=== PATIENT | male | born 1935 | race Caucasian/White ===

== ENCOUNTER 2018-06-15 05:00 | Inpatient (IN) ==
--- NOTE | 2018-06-09 14:54 | EKG Report ---
Test Performed on : 06/09/2018 2:40:32 PM Test Reason : pat Blood Pressure : / mmHG Vent. Rate : 068 BPM Atrial Rate : 068 BPM P-R Int : 182 ms QRS Dur : 100 ms QT Int : 392 ms P-R-T Axes : 055 099 001 degrees QTc Int : 416 ms Normal sinus rhythm. Septal infarct , age undetermined Lateral infarct , age undetermined ST & T wave abnormality, consider inferior ischemia Abnormal ECG When compared with ECG of 12-OCT-2017 14:15, QRS axis shifted right Suspect limb lead reversals, this would account for l\axis shift and lateral NM pattern T wave inversion now evident in Inferior leads Please repeat EKG(no charge) Confirmed by Vipul SNOW, Amado Pablo ([id number]) on 06/12/2018 9:53:29 AM
[2018-06-09 15:09] LABS: URINE SOURCE VOIDED
[2018-06-09 15:12] LABS: BASO# 0.03 X1000 (0.0-0.2); BASO% 0.4 % (0.0-0.8); BILIRUBIN URINE NEGATIVE (NEGATIVE); BLOOD URINE NEGATIVE (NEGATIVE); COLOR YELLOW; EOS# 0.17 X1000 (0.0-0.7); EOS% 2.4 % (0.0-10.0); GLUCOSE URINE NEGATIVE (NEGATIVE); HEMATOCRIT 41.4 % (42.0-52.0); HEMOGLOBIN 13.7 g/dL (14.0-18.0); KETONE URINE NEGATIVE (NEGATIVE); LEUKOCYTES URINE NEGATIVE (NEGATIVE); LYMPH# 2.12 X1000 (1.2-3.4); MCH 32.8 PG (27-31); MCHC 33.1 g/dL (33-37); MONO# 1.16 X1000 (0.11-0.59); MONO% 16.4 % (1.7-9.3); MPV 9.4 FL (7.4-10.4); NEUT# 3.59 X1000 (1.4-6.5); NEUT% 50.8 % (42.2-75.2); NITRITE URINE NEGATIVE (NEGATIVE); PH URINE 5.5; PLT 176 X1000 (130-400); PROTEIN URINE NEGATIVE (NEGATIVE); RBC 4.18 XMIL (4.7-6.1); RDW 13.3 % (11.5-14.5); SP GRAVITY URINE 1.014; TURBIDITY URINE CLEAR (CLEAR); UROBILINOGEN URINE NORMAL (NORMAL); WBC 7.07 X1000 (4.8-10.8)
--- NOTE | 2018-06-09 15:12 | Diag Imaging Result Doc PS360 ---
EXAM: CHEST-2 VIEWS 06/09/2018 HISTORY: PAT TECHNIQUE: PA and lateral chest COMMENT: There is some interstitial opacity in the right costophrenic sulcus which is slightly worse than on the previous study of 10/12/2017. There is a left-sided Port-A-Cath which was not previously present. Otherwise there has been no significant change in the appearance the chest. IMPRESSION: Questionable interstitial pulmonary edema. Electronically signed by Raad Lau 06/09/2018 3:10 PM
[2018-06-09 15:14] LABS: UR EPITHELIAL CELLS <10 /HPF (<10); URINE BACTERIA NEGATIVE /HPF; URINE RBC <10 /HPF (<10); URINE WBC <10 /HPF (<10)
[2018-06-09 15:38] LABS: AGAP 9; ALB/GLOB RATIO 1.2; ALKALINE PHOSPHATASE 89 U/L (32-122); BUN 19 mg/dL (8-22); CALCIUM 9.2 mg/dL (8.8-10.2); CHLORIDE 104 mmol/L (98-107); COSMO 281; CREATININE 0.9 mg/dL (0.7-1.2); ESTIMATED GFR > 60; GLUCOSE 93 mg/dL (70-104); GOT 26 U/L (10-34); GPT 21 U/L (10-44); SODIUM 140 mmol/L (136-145); TCO2 27 mmol/L (25-35); TOTAL PROTEIN 7.3 g/dL (6.3-8.3)
[2018-06-15] MEDS ORDERED: PEPCID ONE (07:24)
[2018-06-15] MEDS ORDERED: REGLAN ONE (07:24)
[2018-06-15] MEDS ORDERED: LR 1,000 ML ONE ×2 (07:25→08:43)
[2018-06-15] MEDS ORDERED: ENTEREG ONE (07:41)
[2018-06-15] MEDS ORDERED: MEFOXIN 1 GM/D5W 1 GM/50 ML IVPB ONE (07:41)
[2018-06-15] MEDS ORDERED: VERSED ONE (07:42)
[2018-06-15] MEDS ORDERED: QUELICIN (DOSE) ONE (07:44)
[2018-06-15] MEDS ORDERED: FENTANYL ONE (07:44)
[2018-06-15] MEDS ORDERED: XYLOCAINE-MPF 2% ONE (07:44)
[2018-06-15] MEDS ORDERED: AMIDATE ONE (07:44)
[2018-06-15] MEDS ORDERED: FLAGYL 1000 MG/NS 1,000 MG/200 ML IVPB IV ONE (08:00)
[2018-06-15] MEDS ORDERED: ZOFRAN ONE (08:10)
[2018-06-15] MEDS ORDERED: OFIRMEV 1000 MG/ISOTONIC SOLN 1,000 MG/100 ML BOTTLE ONE (08:10)
[2018-06-15] MEDS ORDERED: NORCURON ONE (08:10)
[2018-06-15] MEDS ORDERED: DECADRON ONE (08:10)
[2018-06-15] MEDS ORDERED: STERILE WATER INJ. ONE (08:10)
[2018-06-15] MEDS ORDERED: SENSORCAINE 0.5%-EPI 1:200,000 ONE (08:43)
[2018-06-15] MEDS ORDERED: FLAGYL 500 MG/NS 500 MG/100 ML IVPB MISC ONE (09:00)
[2018-06-15] MEDS: FLAGYL 500 MG/NS 500 MG/100 ML IVPB IV SCH (09:12)
[2018-06-15 09:59] LABS: URINE SOURCE CATH
[2018-06-15] MEDS ORDERED: DILAUDID ONE (09:59)
[2018-06-15 10:03] LABS: BILIRUBIN URINE NEGATIVE (NEGATIVE); BLOOD URINE NEGATIVE (NEGATIVE); COLOR YELLOW; GLUCOSE URINE NEGATIVE (NEGATIVE); KETONE URINE NEGATIVE (NEGATIVE); LEUKOCYTES URINE NEGATIVE (NEGATIVE); NITRITE URINE NEGATIVE (NEGATIVE); PROTEIN URINE NEGATIVE (NEGATIVE); SP GRAVITY URINE 1.002; TURBIDITY URINE CLEAR (CLEAR); UR EPITHELIAL CELLS <10 /HPF (<10); URINE BACTERIA NEGATIVE /HPF; URINE RBC <10 /HPF (<10); URINE WBC <10 /HPF (<10); UROBILINOGEN URINE NORMAL (NORMAL)
[2018-06-15] MEDS: DILAUDID ONE ×4 (12:23→12:45)
[2018-06-15] MEDS ORDERED: D5 1/2 NS 1,000 ML ONE (12:24)
[2018-06-15] MEDS ORDERED: DILAUDID-HP 30 MG in NS 27 ML IV PRN (12:33)
[2018-06-15] MEDS ORDERED: NARCAN IV PRN (12:33)
[2018-06-15] MEDS: D5 1/2 NS 1,000 ML IV SCH (14:38)
[2018-06-15] MEDS: OFIRMEV 1000 MG/ISOTONIC SOLN 1,000 MG/100 ML BOTTLE IV SCH ×2 (17:13→21:56)
[2018-06-15] MEDS: MEFOXIN 1 GM/D5W 1 GM/50 ML IVPB IV SCH (18:20)
[2018-06-15] MEDS: FLAGYL 1000 MG/NS 1,000 MG/200 ML IVPB IV SCH (18:54)
[2018-06-15] MEDS: PERIDEX MT SCH (21:56)
--- NOTE | 2018-06-15 22:38 | OPERATIVE NOTE ---
PROCEDURE DATE: 06/15/2018 PREOP: History of T3N3M0 colon cancer in September 2017 in the descending colon. Previous procedure was excision of tumor with end colostomy and Erna pouch. The patient subsequently had a port placement for chemotherapy. Most recent workup revealed no evidence of metastatic disease. Patient is desirous of colostomy closure as he has a pericolostomy hernia and pain. DESCRIPTION OF PROCEDURE: He was brought to the operating room. After satisfactory induction of IV and endotracheal anesthesia, athrombic TEDs and a Redd catheter were placed. His abdomen was broadly prepped and draped in the appropriate manner. Initially a Redd catheter was placed in the end-colostomy and the colostomy itself was cored out with dissection taken down to the fascia. It was subsequently freed up from the fascia and a pursestring device was used to divide the distal colon and a 28 mm EEA anvil was sewed in. This was subsequently dropped back into the peritoneal cavity. The fascial defect was closed with interrupted #1 Maxon and packed with Xeroform gauze and wet laparotomy sponge. Attention was then taken to the upper midline. A Della approach was used to place Della trocar. The abdomen was insufflated to 3.5 L of carbon dioxide. On introduction of the camera there was seen to be extensive omental and small bowel adhesions to the anterior abdominal wall as well as into the pelvis. It was not felt that this was amenable to a laparoscopic attempt at colostomy closure. For this reason, the laparoscopic portion was abandoned. The old midline incision was reopened. The small bowel and omental adhesions were freed up. 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 It did not appear to have an end and we did not feel it was safe to pursue this any further and resect more rectum and tumor and reanastomose him at this point. For this reason, several large hemoclips were placed in the area of the tumor for localization for the radiation oncologist. A new colostomy was developed in the right lower quadrant after freeing up the proximal sigmoid colon. There was no significant tension on this. Subsequent to this the wound was irrigated. After accounting for all laparotomy sponges, the closure was initiated. The peritoneum was closed with a single running layer of #1 Vicryl. The fascia was closed with interrupted #1 Maxon. Subcutaneous was debrided and the skin was closed with stainless steel clips in the old colostomy site, the laparoscopy site as well as the midline incision. The colostomy itself was subsequently matured with interrupted 3-0 Vicryl. Sterile colostomy bag was applied as well as sterile dressing. The patient was subsequently awakened and extubated in the operating room. Estimated blood loss was around 200 mL. He had approximately 250 mL of urine output. PLAN: Is for reconsultation with Dr. Castro and Dr. Bell for consideration of another round of chemo as well as radiation therapy to the pelvis. cc: Seth Emery MD
[2018-06-16] MEDS: FLAGYL 1000 MG/NS 1,000 MG/200 ML IVPB IV SCH ×2 (00:30→09:32)
[2018-06-16] MEDS: LR 1,000 ML IV SCH ×2 (01:07→13:17)
[2018-06-16] MEDS: FLAGYL 500 MG/NS 500 MG/100 ML IVPB IV SCH (01:07)
[2018-06-16] MEDS: D5 1/2 NS 1,000 ML IV SCH ×3 (01:30→18:33)
[2018-06-16] MEDS: MEFOXIN 1 GM/D5W 1 GM/50 ML IVPB IV SCH ×2 (02:00→10:45)
[2018-06-16] MEDS: OFIRMEV 1000 MG/ISOTONIC SOLN 1,000 MG/100 ML BOTTLE IV SCH ×2 (04:34→09:18)
[2018-06-16 06:24] LABS: BASO# 0.02 X1000 (0.0-0.2); BASO% 0.2 % (0.0-0.8); EOS# 0.04 X1000 (0.0-0.7); EOS% 0.4 % (0.0-10.0); HEMATOCRIT 39.9 % (42.0-52.0); HEMOGLOBIN 13.4 g/dL (14.0-18.0); IMM GRAN# 0.03 X1000 (0.0-0.04); IMM GRAN% 0.3 % (0.0-0.5); LYMPH# 1.74 X1000 (1.2-3.4); LYMPH% 15.5 % (20.5-51.1); MCH 33.1 PG (27-31); MCHC 33.6 g/dL (33-37); MCV 98.5 FL (81-99); MONO# 1.24 X1000 (0.11-0.59); MONO% 11.1 % (1.7-9.3); MPV 9.6 FL (7.4-10.4); NEUT# 8.14 X1000 (1.4-6.5); NEUT% 72.5 % (42.2-75.2); PLT 175 X1000 (130-400); RBC 4.05 XMIL (4.7-6.1); WBC 11.21 X1000 (4.8-10.8)
[2018-06-16 07:02] LABS: AGAP 12; BUN 7 mg/dL (8-22); CALCIUM 8.4 mg/dL (8.8-10.2); CHLORIDE 101 mmol/L (98-107); COSMO 272; CREATININE 0.7 mg/dL (0.7-1.2); ESTIMATED GFR > 60; GLUCOSE 134 mg/dL (70-104); POTASSIUM 3.9 mmol/L (3.5-5.1); SODIUM 136 mmol/L (136-145); TCO2 23 mmol/L (25-35)
[2018-06-16] MEDS: BIOTIN PO SCH (09:15)
[2018-06-16] MEDS: ZINC SULFATE PO SCH (09:16)
[2018-06-16] MEDS: VICON-C PO SCH (09:16)
[2018-06-16] MEDS: PERIDEX MT SCH ×2 (09:16→21:40)
[2018-06-16] MEDS: ENTEREG PO SCH ×2 (09:16→21:40)
[2018-06-16] MEDS: VITAMIN C PO SCH (09:16)
[2018-06-16] MEDS: CULTURELLE PO SCH (09:16)
[2018-06-16] MEDS: FERROUS SULFATE PO SCH (09:16)
[2018-06-16] MEDS: ZYRTEC PO SCH (09:16)
--- NOTE | 2018-06-16 11:13 | HEMO/ONC CONSULTATION ---
DATE: 06/16/2018 CHIEF COMPLAINT: Further evaluation and management of patient's sigmoid colon adenocarcinoma. HISTORY OF PRESENT ILLNESS: Mr. Bansal is a pleasant, 82-year-old male, that went into the hospital on 06/13/2018 to have reversal of his colostomy. While patient was in surgery, the patient was found to have multiple small bowel adhesions in the pelvis fixed into the middle adhesions as well. A portion of this was sent to pathology and that revealed a mucinous adenocarcinoma as well, and unfortunately, reanastomosis was unable to be performed at that time. He was admitted for further evaluation. Mr. Bansal is well known to us in our clinic where he had been followed up for his T4a N2 16 out of 24 lymph nodes sigmoid colon adenocarcinoma. At that time stated that those did not show any evidence of metastatic disease. The patient underwent sigmoid resection on and pathology revealed a moderate to poorly differentiated carcinoma with macroscopic tumor perforation. The patient was unable to have radiation at that time. The patient was started on adjuvant chemotherapy on 11/30/2017, the patient finished his adjuvant chemotherapy of FOLFOX on 05/04/2018 when he received his last dose. The patient had restaging scans with a CT performed on 05/10/2018 that showed no evidence of metastatic disease at that time. PAST MEDICAL HISTORY: Rectosigmoid adenocarcinoma. PAST SURGICAL HISTORY: Repair colon resection. ALLERGIES: No known drug allergies. HOME MEDICATIONS: Vitamin C, biotin, Zyrtec, iron, probiotics, vitamin B complex, Coumadin, and zinc. SOCIAL HISTORY: Denies any tobacco or illicit drug use. FAMILY HISTORY: Congestive heart failure. REVIEW OF SYSTEMS: Negative unless mentioned in the HPI. PHYSICAL EXAM: Vital Signs: Temperature 97.8, heart rate 60, respiratory rate 18, blood pressure 120/97, saturation 100% on room air. General: Patient is awake, laying in bed , no acute distress noted. HEENT: Anicteric. PERRLA. Mucous membranes moist. Neck: Supple. Trachea midline. No JVD noted. Lymph node survey: Palpable lymphadenopathy. Cardiovascular: Normal S1, S2. Regular rate and rhythm. Chest: Bilateral breath sounds clear to auscultation. Abdomen: Soft, tender. Bowel sounds hypoactive. Midline incision to abdomen noted. Dressing intact. Skin: Warm, dry. No petechiae, no clubbing, no rashes, no cyanosis. Neurologic: Alert and oriented x3. No focal deficits noted. LABORATORY DATA: White cell count 11.21, hemoglobin 13.4, hematocrit 39.9, platelets are 175. Potassium 3.9, BUN 7, creatinine 0.7. ASSESSMENT AND PLAN: 1. Rectal adenocarcinoma: Patient was found to have adhesions to small bowel and omentum in the operating room yesterday. At this time, we will discuss with Dr. Belle Bell to see if patient is candidate for radiation. Will continue to follow up and monitor and make recommendation. 2. Anemia. Today, hemoglobin is 13.4, hematocrit 39.9. Continues to be stable compared to labs in the office. We will continue to monitor closely. 3. Supportive care: The patient will start protein shakes as soon as he is cleared to eat and drink. The patient will start protein shakes 4 times a day. Plan of care discussed with Dr. Castro. Dictated by KRYSTAL Renteria for Herson Castro MD Patient seen and examined. As above. Patient underwent surgery with the intent for colostomy reversal. Unfortunately he was noted to have some drop metastases in the rectal area. Surgery was aborted. Dr. Emery has consult at Dr. Bell for radiation to this area. If needed we will add concurrent chemotherapy therapy with 5 fluorouracil. Otherwise patient is doing well. Of note, previously he was diagnosed to have extremely high risk colon cancer with perforation and numerable positive lymph nodes. He tolerated FOLFOX chemotherapy extremely well. Recent CT of the abdomen and pelvis was without distant metastases. Herson Castro M.D. cc: KRYSTAL Renteria MD [facility] C. Nabers, MD [facility]
[2018-06-16 12:07] LABS: INR 1.06; PROTIME 14.6 Seconds (11.0-16.0)
[2018-06-16] MEDS: COUMADIN PO SCH (21:40)
[2018-06-16] MEDS: ZANTAC PO SCH (21:40)
[2018-06-17 05:21] LABS: BASO# 0.01 X1000 (0.0-0.2); BASO% 0.1 % (0.0-0.8); EOS# 0.11 X1000 (0.0-0.7); EOS% 1.1 % (0.0-10.0); HEMOGLOBIN 13.1 g/dL (14.0-18.0); LYMPH% 14.1 % (20.5-51.1); MCH 33.5 PG (27-31); MCHC 33.6 g/dL (33-37); MCV 99.7 FL (81-99); MONO# 1.26 X1000 (0.11-0.59); MONO% 12.7 % (1.7-9.3); MPV 9.4 FL (7.4-10.4); NEUT# 7.12 X1000 (1.4-6.5); PLT 153 X1000 (130-400); RBC 3.91 XMIL (4.7-6.1); RDW 13.3 % (11.5-14.5)
[2018-06-17 05:41] LABS: AGAP 11; BUN 4 mg/dL (8-22); CALCIUM 8.3 mg/dL (8.8-10.2); CHLORIDE 103 mmol/L (98-107); COSMO 274; CREATININE 0.7 mg/dL (0.7-1.2); ESTIMATED GFR > 60; GLUCOSE 149 mg/dL (70-104); POTASSIUM 3.5 mmol/L (3.5-5.1); SODIUM 137 mmol/L (136-145); TCO2 23 mmol/L (25-35)
--- NOTE | 2018-06-17 07:35 | Diag Imaging Result Doc PS360 ---
EXAM: CHEST-PORTABLE 06/17/2018 HISTORY: Post Op TECHNIQUE: AP portable at 0655 COMMENT: There is platelike atelectasis in the left lower lobe. The inspiration is generally less optimal than on 06/09/2018, otherwise there has been no significant change. IMPRESSION: Minimal atelectasis versus fibrosis on the left. Electronically signed by Raad Lau 06/17/2018 7:32 AM
--- NOTE | 2018-06-17 08:53 | HEMO/ONC PROGRESS NOTE ---
DATE: 06/17/2018 SUBJECTIVE: The patient has no complaints at this time. The patient says he is doing well at this time. OBJECTIVE: Vital Signs: Temperature 96.5 degrees, heart rate 81, respiratory rate 14, blood pressure 150/79, saturation 95% on room air. General: The patient is awake, lying in bed. No acute distress noted. HEENT: Anicteric. Pupils PERRLA. Mucous membranes moist. Cardiovascular: Normal S1 and S2. Regular rate and rhythm. Chest: Bilateral breath sounds clear to auscultation. Abdomen: Soft, nontender. Bowel sounds present in all 4 quadrants. Dressing to midline abdomen intact. Neurologic: Alert and oriented x3. No focal deficits noted. LABORATORY DATA: White blood cell count 9.9, hemoglobin 13.1, hematocrit 39.0, platelets 153,000. Potassium 3.5, BUN 4, creatinine 0.7. ASSESSMENT AND PLAN: 1. Rectal adenocarcinoma: The patient was found to have an area of metastasis within the rectal area. Dr. Bell has been consulted for radiation of this area. If needed, we will give chemotherapy. We will continue to monitor and make further recommendations. 2. Anemia: Hemoglobin and hematocrit continue to be stable. Continue to monitor closely. 3. Protein shakes: Continue protein shakes q.i.d. Have patient get out of bed as much as possible. Plan of care discussed with Dr. Castro. Dictated by KRYSTAL Renteria for Herson Castro MD cc: KRYSTAL Renteria MD [facility]. Nabers, MD
[2018-06-17] MEDS: ENTEREG PO SCH ×2 (10:06→22:52)
[2018-06-17] MEDS: VITAMIN C PO SCH (10:06)
[2018-06-17] MEDS: VICON-C PO SCH (10:06)
[2018-06-17] MEDS: ZANTAC PO SCH ×2 (10:06→22:52)
[2018-06-17] MEDS: BIOTIN PO SCH (10:06)
[2018-06-17] MEDS: CULTURELLE PO SCH (10:06)
[2018-06-17] MEDS: ZINC SULFATE PO SCH (10:06)
[2018-06-17] MEDS: FERROUS SULFATE PO SCH (10:06)
[2018-06-17] MEDS: ZYRTEC PO SCH (10:07)
[2018-06-17] MEDS: PERIDEX MT SCH ×2 (10:07→22:52)
[2018-06-17] MEDS: D5 1/2 NS 1,000 ML IV SCH ×2 (10:39→11:55)
[2018-06-17] MEDS: TYLENOL PO PRN (11:51)
[2018-06-17] MEDS ORDERED: D5 1/2 NS 1,000 ML IV SCH (12:00)
[2018-06-17] MEDS: LR 1,000 ML IV SCH (12:18)
--- NOTE | 2018-06-17 13:49 | CONSULTATION ---
DATE OF CONSULTATION: 06/16/2018 REASON FOR CONSULTATION: Recurrent colon cancer. HISTORY OF PRESENT ILLNESS: Mr. Bansal is a pleasant 82-year-old gentleman well known to me. I first met him in the Summer of 2017 after he had been diagnosed with a T4 N2 adenocarcinoma of the sigmoid colon. At that time, he had surgery and adjuvant chemotherapy. We have also considered adding radiation therapy but because of the location of the original tumor above the peritoneal reflection it was not felt that we could adequately target the area at risk. We however knew that the patient was a very high risk for recurrence due to his T4 disease in 16 of 24 lymph nodes being positive for adenocarcinoma. Unfortunately, he was found to have significant recurrence this week when Dr. Emery took him to the OR to reverse his colostomy. This was done yesterday on 06/15/2018. He was found during surgery to have metastasis around the rectal stump. 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 It was not felt safe to pursue any further resection so several large hemoclips were placed in the area of the tumor for localized radiation. I am here today to discuss this further with the patient. PAST MEDICAL HISTORY: Colon cancer. PAST SURGICAL HISTORY: Colon resection. HOME MEDICATIONS: 1. Vitamin C. 2. Biotin. 3. Zyrtec. 4. Iron. 5. Probiotics. 6. Vitamin B. 7. Coumadin. 8. Zinc. ALLERGIES: No known allergies. SOCIAL HISTORY: No tobacco or alcohol. FAMILY HISTORY: None significant. PHYSICAL EXAMINATION: Vitals: Per the hospital record. HEENT: Pupils are equal, round, and reactive to light. Mucous membranes are moist. Neck: Supple. Heart: Revealed normal rate. Chest: The patient is breathing comfortably. Abdomen: Non distended. Extremities: Reveal no edema. Neurologic: The patient is alert and oriented x3. There are no focal deficits. ASSESSMENT/PLAN: In summary, Mr. Bansal has a locally recurrent colon cancer. I agree with the recommendation for radiation therapy. I do believe the concurrent chemotherapy as needed as well. We will discuss this further with Dr. Castro. The patient will be in the hospital through the week, and I will plan on seeing him in the office at the end of next week to discuss getting started with radiation. cc: MD Seth Ott MD
[2018-06-17] MEDS: COUMADIN PO SCH (22:52)
[2018-06-18 07:32] VITALS: BP 135/72
--- NOTE | 2018-06-18 08:12 | HEMO/ONC PROGRESS NOTE ---
DATE: 06/18/2018 SUBJECTIVE: Patient says he is feeling well at this time. Has had some very mild abdominal pain from surgery. Otherwise, no other complaints. OBJECTIVE: Vital Signs: Temperature 98.2 degrees, heart rate 67, respiratory rate 20, blood pressure 135/72, satting 99% on room air. General: Patient is awake, lying in bed, no acute distress noted. HEENT: Anicteric. Pupils PERRLA. Mucous membranes appear to be moist. Cardiovascular: Normal S1, S2. Regular rate and rhythm. Chest: Bilateral breath sounds. Clear to auscultation. Abdomen: Soft, mildly tender. Bowel sounds present in all 4 quadrants. Colostomy intact and draining well. Neurologic: Alert and oriented x3. No focal deficits noted. ASSESSMENT AND PLAN: 1. Rectal adenocarcinoma: The patient will require concurrent chemotherapy and radiation once he is discharged from the hospital. Dr. Bell has seen the patient and discussed that with him as well. Patient will follow up once he is discharged from the hospital with Dr. Bell and nurse as well to discuss treatment at that time. 2. Anemia. Continue to monitor closely. 3. Protein shakes. Continue protein shakes four times daily. Continue to have patient get out of bed as much as possible. Plan of care discussed with Dr. Castro. Dictated by KRYSTAL Renteria for Herson Castro MD cc: KRYSTAL Renteria MD Hugh C. Nabers, MD
[2018-06-18] MEDS: ZYRTEC PO SCH (09:23)
[2018-06-18] MEDS: FERROUS SULFATE PO SCH (09:23)
[2018-06-18] MEDS: VICON-C PO SCH (09:23)
[2018-06-18] MEDS: ZINC SULFATE PO SCH (09:23)
[2018-06-18] MEDS: ENTEREG PO SCH (09:23)
[2018-06-18] MEDS: VITAMIN C PO SCH (09:23)
[2018-06-18] MEDS: CULTURELLE PO SCH (09:23)
[2018-06-18] MEDS: PERIDEX MT SCH (09:24)
[2018-06-18] MEDS: ZANTAC PO SCH (09:24)
[2018-06-18] MEDS: TYLENOL PO PRN (09:27)
[2018-06-18] MEDS: BIOTIN PO SCH (09:27)
--- NOTE | 2018-07-03 09:46 | DISCHARGE SUMMARY ---
ADMISSION DATE: 06/15/2018 DISCHARGE DATE: 06/18/2018 DIAGNOSIS: History of T4N2M0 colon cancer, status post resection with end colostomy and Erna pouch with postoperative chemotherapy. The plan was for colostomy closure. The patient is an 83- year-old white male with known history of a T3-T4 colon cancer with 16/18 positive lymph nodes from surgery in September of 2016. He subsequently had a course of chemotherapy with Dr. Castro. Most recent evaluation had not revealed any evidence of metastatic disease. He was very desirous of colostomy closure as he is still quite active. He also had a pericolostomy hernia that was bothering him. The patient underwent an outpatient chemical and mechanical bowel prep and was admitted on the day of surgery. The colostomy was taken down. The pericolostomy hernia was closed. On examination of the rectal stump, there appeared to be multiple gravitational tumor implants. They were proven on frozen section to be mucinous adenocarcinoma, the same as his previous diagnosis. These did not appear to be metastatic. They appeared to be related to the tumor from previous excision. The area was marked out for consideration for radiation therapy. A new colostomy was placed in the right side after freeing up the proximal colon somewhat. Hospitalization was largely uneventful. He tolerated his dietary advancements well as his new colostomy position was satisfactory with no evidence of stomal ischemia. Otherwise, he did well and was subsequently allowed home. He will be consulted with Dr. Bell for consideration for radiation therapy in the future. This does not appear to be a metastatic process, so it is unknown at this time whether Dr. Castro will want to do more chemotherapy or not. cc: Seth Emery MD
== END 2018-06-18 12:27 | disposition home or self-care (01) | DRG 827 ==
LOC: SURHOLD 05:00 → 4N 11:14
PROVIDERS: ADMIT Surgery; ATTEND Surgery
PROC: GE.COLS (2018-06-15 09:07)
CPT/HCPCS: 71010; 71020; 71045; 71046; 80048; 80053; 81001; 85025; 85610; 86850; 86900; 86901; 88305; 88309; 88331; 93005; 93010; 94761; 94799; A9270; J0131; J0330; J0694; J1100; J1170; J2250; J2405; J3010; J7120; S0030

== ENCOUNTER 2019-04-06 16:46 | Inpatient (IN) ==
[2019-04-06 17:41] LABS: BASO# 0.01 X1000 (0.0-0.2); BASO% 0.3 % (0.0-0.8); HEMATOCRIT 33.1 % (42.0-52.0); LYMPH# 0.49 X1000 (1.2-3.4); LYMPH% 16.5 % (20.5-51.1); MCH 33.4 PG (27-31); MCHC 33.2 g/dL (33-37); MCV 100.6 FL (81-99); MONO# 0.46 X1000 (0.11-0.59); MONO% 15.5 % (1.7-9.3); MPV 8.7 FL (7.4-10.4); NEUT# 2.01 X1000 (1.4-6.5); NEUT% 67.7 % (42.2-75.2); PLT 176 X1000 (130-400); RBC 3.29 XMIL (4.7-6.1); RDW 15.5 % (11.5-14.5); WBC 2.97 X1000 (4.8-10.8)
[2019-04-06 17:50] LABS: INR 1.21; PROTIME 15.5 Seconds (11.0-16.0)
[2019-04-06 17:51] LABS: PTT 31.8 Seconds (22.3-41.8)
[2019-04-06 18:01] LABS: URINE SOURCE CLEAN CATCH
[2019-04-06 18:04] LABS: BILIRUBIN URINE NEGATIVE (NEGATIVE); BLOOD URINE NEGATIVE (NEGATIVE); COLOR YELLOW; GLUCOSE URINE NEGATIVE (NEGATIVE); KETONE URINE 20 mg/dL (NEGATIVE); LEUKOCYTES URINE NEGATIVE (NEGATIVE); NITRITE URINE NEGATIVE (NEGATIVE); PH URINE 6.5; PROTEIN URINE TRACE mg/dL (NEGATIVE); TURBIDITY URINE CLEAR (CLEAR); UROBILINOGEN URINE NORMAL (NORMAL)
[2019-04-06 18:05] LABS: UR EPITHELIAL CELLS <10 /HPF (<10); URINE BACTERIA NEGATIVE /HPF; URINE RBC <10 /HPF (<10); URINE WBC <10 /HPF (<10)
[2019-04-06 18:10] LABS: AGAP 11; ALBUMIN 4.3 g/dL (3.5-5.0); ALKALINE PHOSPHATASE 80 U/L (32-122); BUN 12 mg/dL (8-22); CALCIUM 8.9 mg/dL (8.8-10.2); CHLORIDE 96 mmol/L (98-107); COSMO 266; CREATININE 0.9 mg/dL (0.7-1.2); ESTIMATED GFR > 60; GLUCOSE 136 mg/dL (70-104); GOT 30 U/L (10-34); GPT 27 U/L (10-44); LIPASE 21 U/L (13-60); SODIUM 132 mmol/L (136-145); TCO2 25 mmol/L (25-35); TOTAL BILIRUBIN 0.49 mg/dL (0.20-1.00); TOTAL PROTEIN 6.5 g/dL (6.3-8.3)
[2019-04-06 20:07] LABS: UR AMPHETAMINES QUAL NONE DETECTED (NONE DETECT); UR BARBITUATES QUAL NONE DETECTED (NONE DETECT); UR BENZODIAZEPIN QUAL NONE DETECTED (NONE DETECT); UR CANNABINOIDS QUAL NONE DETECTED (NONE DETECT); UR COCAINE QUAL NONE DETECTED (NONE DETECT); UR METHADONE QUAL NONE DETECTED (NONE DETECT); UR OPIATES QUAL NONE DETECTED (NONE DETECT); UR OXYCODONE QUAL NONE DETECTED (NONE DETECT); UR PCP QUAL NONE DETECTED (NONE DETECT)
[2019-04-06 20:10] LABS: ACETAMINOPHEN < 1.2 ug/mL (10-30); SALICYLATES < 3.00 mg/dL (3-10)
[2019-04-06 20:31] LABS: FREE T4 1.17 ng/dL (0.93-1.70)
[2019-04-07 07:23] LABS: BASO# 0.01 X1000 (0.0-0.2); BASO% 0.2 % (0.0-0.8); EOS# 0.08 X1000 (0.0-0.7); EOS% 1.8 % (0.0-10.0); HEMATOCRIT 37.2 % (42.0-52.0); HEMOGLOBIN 12.3 g/dL (14.0-18.0); IMM GRAN# 0.02 X1000 (0.0-0.04); IMM GRAN% 0.5 % (0.0-0.5); LYMPH# 0.73 X1000 (1.2-3.4); LYMPH% 16.9 % (20.5-51.1); MCH 34.2 PG (27-31); MCHC 33.1 g/dL (33-37); MCV 103.3 FL (81-99); MONO# 0.73 X1000 (0.11-0.59); MONO% 16.9 % (1.7-9.3); MPV 9.1 FL (7.4-10.4); NEUT# 2.76 X1000 (1.4-6.5); NEUT% 63.7 % (42.2-75.2); PLT 157 X1000 (130-400); RDW 16.2 % (11.5-14.5); WBC 4.33 X1000 (4.8-10.8)
[2019-04-07 07:50] LABS: AGAP 18; ALB/GLOB RATIO 1.2; ALBUMIN 3.7 g/dL (3.5-5.0); ALKALINE PHOSPHATASE 82 U/L (32-122); BUN 10 mg/dL (8-22); CALCIUM 8.3 mg/dL (8.8-10.2); CHLORIDE 99 mmol/L (98-107); COSMO 271; CREATININE 0.8 mg/dL (0.7-1.2); ESTIMATED GFR > 60; GLUCOSE 97 mg/dL (70-104); GOT 39 U/L (10-34); GPT 25 U/L (10-44); MAGNESIUM 2.2 mg/dL (1.5-2.7); POTASSIUM 4.3 mmol/L (3.5-5.1); SODIUM 136 mmol/L (136-145); TCO2 19 mmol/L (25-35); TOTAL BILIRUBIN 0.48 mg/dL (0.20-1.00); TOTAL PROTEIN 6.7 g/dL (6.3-8.3)
[2019-04-07 11:34] LABS: URINE SOURCE CATH
[2019-04-07 11:43] LABS: BILIRUBIN URINE NEGATIVE (NEGATIVE); BLOOD URINE NEGATIVE (NEGATIVE); COLOR YELLOW; GLUCOSE URINE TRACE mg/dL (NEGATIVE); KETONE URINE 10 mg/dL (NEGATIVE); LEUKOCYTES URINE NEGATIVE (NEGATIVE); NITRITE URINE NEGATIVE (NEGATIVE); PH URINE 6.5; PROTEIN URINE NEGATIVE (NEGATIVE); TURBIDITY URINE CLEAR (CLEAR); UROBILINOGEN URINE NORMAL (NORMAL)
[2019-04-07 11:44] LABS: UR EPITHELIAL CELLS <10 /HPF (<10); URINE BACTERIA NEGATIVE /HPF; URINE RBC <10 /HPF (<10); URINE WBC <10 /HPF (<10)
[2019-04-08 09:46] LABS: AGAP 16; ALB/GLOB RATIO 1.2; ALBUMIN 3.2 g/dL (3.5-5.0); ALKALINE PHOSPHATASE 66 U/L (32-122); BUN 9 mg/dL (8-22); CALCIUM 7.9 mg/dL (8.8-10.2); CHLORIDE 97 mmol/L (98-107); COSMO 262; CREATININE 0.9 mg/dL (0.7-1.2); ESTIMATED GFR > 60; GLUCOSE 85 mg/dL (70-104); GOT 32 U/L (10-34); GPT 22 U/L (10-44); POTASSIUM 3.9 mmol/L (3.5-5.1); SODIUM 132 mmol/L (136-145); TCO2 19 mmol/L (25-35); TOTAL BILIRUBIN 0.41 mg/dL (0.20-1.00); TOTAL PROTEIN 5.9 g/dL (6.3-8.3)
[2019-04-08 18:54] LABS: URINE SOURCE CATH
[2019-04-08 19:02] LABS: BILIRUBIN URINE NEGATIVE (NEGATIVE); BLOOD URINE TRACE (NEGATIVE); COLOR YELLOW; GLUCOSE URINE NEGATIVE (NEGATIVE); KETONE URINE NEGATIVE (NEGATIVE); LEUKOCYTES URINE NEGATIVE (NEGATIVE); NITRITE URINE NEGATIVE (NEGATIVE); PROTEIN URINE TRACE mg/dL (NEGATIVE); SP GRAVITY URINE 1.018; TURBIDITY URINE CLEAR (CLEAR); UROBILINOGEN URINE NORMAL (NORMAL)
[2019-04-08 19:03] LABS: UR EPITHELIAL CELLS <10 /HPF (<10); URINE BACTERIA NEGATIVE /HPF; URINE RBC <10 /HPF (<10); URINE WBC <10 /HPF (<10)
[2019-04-09 08:11] LABS: BASO# 0.01 X1000 (0.0-0.2); BASO% 0.3 % (0.0-0.8); EOS# 0.01 X1000 (0.0-0.7); EOS% 0.3 % (0.0-10.0); HEMATOCRIT 32.7 % (42.0-52.0); HEMOGLOBIN 10.9 g/dL (14.0-18.0); LYMPH# 0.79 X1000 (1.2-3.4); MCH 33.7 PG (27-31); MCHC 33.3 g/dL (33-37); MCV 101.2 FL (81-99); MONO# 0.45 X1000 (0.11-0.59); MONO% 14.2 % (1.7-9.3); MPV 9.1 FL (7.4-10.4); NEUT% 60.2 % (42.2-75.2); PLT 143 X1000 (130-400); RBC 3.23 XMIL (4.7-6.1); RDW 15.1 % (11.5-14.5); WBC 3.16 X1000 (4.8-10.8)
[2019-04-09 08:39] LABS: AGAP 12; BUN 10 mg/dL (8-22); CALCIUM 7.7 mg/dL (8.8-10.2); CHLORIDE 99 mmol/L (98-107); COSMO 267; CREATININE 0.8 mg/dL (0.7-1.2); ESTIMATED GFR > 60; GLUCOSE 100 mg/dL (70-104); POTASSIUM 3.4 mmol/L (3.5-5.1); SODIUM 134 mmol/L (136-145); TCO2 23 mmol/L (25-35)
[2019-04-10 01:12] LABS: URINE SOURCE CATH
[2019-04-10 01:42] LABS: BILIRUBIN URINE NEGATIVE (NEGATIVE); BLOOD URINE NEGATIVE (NEGATIVE); COLOR YELLOW; GLUCOSE URINE NEGATIVE (NEGATIVE); KETONE URINE 20 mg/dL (NEGATIVE); LEUKOCYTES URINE NEGATIVE (NEGATIVE); NITRITE URINE NEGATIVE (NEGATIVE); PH URINE 6.5; PROTEIN URINE NEGATIVE (NEGATIVE); SP GRAVITY URINE 1.015; TURBIDITY URINE CLEAR (CLEAR); UROBILINOGEN URINE NORMAL (NORMAL)
[2019-04-10 01:58] LABS: UR EPITHELIAL CELLS <10 /HPF (<10); URINE BACTERIA NEGATIVE /HPF; URINE RBC <10 /HPF (<10); URINE WBC <10 /HPF (<10)
[2019-04-10 01:59] LABS: URINE CASTS NONE SEEN; URINE CRYSTALS NONE SEEN; URINE SMALL ROUND CELLS NONE SEEN; URINE YEAST NONE SEEN
[2019-04-10 07:18] LABS: BASO# 0.01 X1000 (0.0-0.2); BASO% 0.5 % (0.0-0.8); EOS# 0.02 X1000 (0.0-0.7); EOS% 0.9 % (0.0-10.0); HEMATOCRIT 30.9 % (42.0-52.0); HEMOGLOBIN 10.2 g/dL (14.0-18.0); LYMPH# 0.61 X1000 (1.2-3.4); LYMPH% 27.7 % (20.5-51.1); MCH 33.1 PG (27-31); MCV 100.3 FL (81-99); MONO# 0.39 X1000 (0.11-0.59); MONO% 17.7 % (1.7-9.3); MPV 9.3 FL (7.4-10.4); NEUT# 1.17 X1000 (1.4-6.5); NEUT% 53.2 % (42.2-75.2); PLT 155 X1000 (130-400); RBC 3.08 XMIL (4.7-6.1); RDW 14.9 % (11.5-14.5)
[2019-04-10 07:40] LABS: AGAP 11; BUN 10 mg/dL (8-22); CALCIUM 7.3 mg/dL (8.8-10.2); CHLORIDE 102 mmol/L (98-107); COSMO 271; CREATININE 0.7 mg/dL (0.7-1.2); ESTIMATED GFR > 60; GLUCOSE 93 mg/dL (70-104); POTASSIUM 3.7 mmol/L (3.5-5.1); SODIUM 136 mmol/L (136-145); TCO2 23 mmol/L (25-35)
[2019-04-10 07:42] LABS: MAGNESIUM 2.2 mg/dL (1.5-2.7); PHOSPHORUS 1.2 mg/dL (2.7-4.5)
[2019-04-11 07:24] LABS: BASO# 0.02 X1000 (0.0-0.2); BASO% 1.1 % (0.0-0.8); EOS# 0.03 X1000 (0.0-0.7); EOS% 1.7 % (0.0-10.0); HEMATOCRIT 34.6 % (42.0-52.0); HEMOGLOBIN 11.8 g/dL (14.0-18.0); LYMPH# 0.42 X1000 (1.2-3.4); LYMPH% 23.7 % (20.5-51.1); MCH 34.9 PG (27-31); MCHC 34.1 g/dL (33-37); MCV 102.4 FL (81-99); MONO# 0.44 X1000 (0.11-0.59); MONO% 24.9 % (1.7-9.3); MPV 9.5 FL (7.4-10.4); NEUT# 0.86 X1000 (1.4-6.5); NEUT% 48.6 % (42.2-75.2); PLT 172 X1000 (130-400); RBC 3.38 XMIL (4.7-6.1); RDW 15.6 % (11.5-14.5); WBC 1.77 X1000 (4.8-10.8)
[2019-04-11 07:35] LABS: AGAP 14; ALB/GLOB RATIO 1.5; ALKALINE PHOSPHATASE 62 U/L (32-122); BUN 12 mg/dL (8-22); CALCIUM 7.5 mg/dL (8.8-10.2); CHLORIDE 106 mmol/L (98-107); COSMO 277; CREATININE 0.6 mg/dL (0.7-1.2); ESTIMATED GFR > 60; GLUCOSE 92 mg/dL (70-104); GOT 27 U/L (10-34); GPT 22 U/L (10-44); MAGNESIUM 2.2 mg/dL (1.5-2.7); PHOSPHORUS 1.2 mg/dL (2.7-4.5); POTASSIUM 3.7 mmol/L (3.5-5.1); SODIUM 139 mmol/L (136-145); TCO2 19 mmol/L (25-35); TOTAL BILIRUBIN 0.42 mg/dL (0.20-1.00)
[2019-04-11 16:38] LABS: APPEARANCE RED; MONOS 88 %; POLYS 12 %; RBC BF 21000 /cumm; WBC BF 273 /cumm
[2019-04-11 17:20] LABS: PROTEIN CSF 345.3 mg/dL (15-45)
[2019-04-11 17:23] LABS: GLUCOSE CSF 66 mg/dL (39-75)
[2019-04-12 07:27] LABS: BASO# 0.02 X1000 (0.0-0.2); EOS# 0.05 X1000 (0.0-0.7); EOS% 2.5 % (0.0-10.0); HEMATOCRIT 34.4 % (42.0-52.0); HEMOGLOBIN 11.3 g/dL (14.0-18.0); IMM GRAN# 0.03 X1000 (0.0-0.04); IMM GRAN% 1.5 % (0.0-0.5); LYMPH# 0.59 X1000 (1.2-3.4); LYMPH% 29.1 % (20.5-51.1); MCH 33.1 PG (27-31); MCHC 32.8 g/dL (33-37); MCV 100.9 FL (81-99); MONO# 0.47 X1000 (0.11-0.59); MONO% 23.2 % (1.7-9.3); MPV 9.2 FL (7.4-10.4); NEUT# 0.87 X1000 (1.4-6.5); NEUT% 42.7 % (42.2-75.2); PLT 230 X1000 (130-400); RBC 3.41 XMIL (4.7-6.1); RDW 15.6 % (11.5-14.5); WBC 2.03 X1000 (4.8-10.8)
[2019-04-12 07:32] LABS: MAGNESIUM 2.1 mg/dL (1.5-2.7); PHOSPHORUS 1.1 mg/dL (2.7-4.5)
[2019-04-12 07:34] LABS: AGAP 9; BUN 7 mg/dL (8-22); CHLORIDE 103 mmol/L (98-107); COSMO 272; CREATININE 0.7 mg/dL (0.7-1.2); ESTIMATED GFR > 60; GLUCOSE 97 mg/dL (70-104); POTASSIUM 3.7 mmol/L (3.5-5.1); SODIUM 137 mmol/L (136-145); TCO2 25 mmol/L (25-35)
[2019-04-12 07:48] LABS: BANDS 4 % (0-1); EOS 4 % (1-10); LYMPHS 31 % (21-51); MONO 12 % (1-9); SEGS 46 % (42-75)
[2019-04-13 07:21] LABS: BASO# 0.03 X1000 (0.0-0.2); BASO% 0.7 % (0.0-0.8); EOS# 0.04 X1000 (0.0-0.7); EOS% 0.9 % (0.0-10.0); HEMATOCRIT 35.6 % (42.0-52.0); HEMOGLOBIN 11.7 g/dL (14.0-18.0); IMM GRAN# 0.24 X1000 (0.0-0.04); IMM GRAN% 5.7 % (0.0-0.5); LYMPH# 0.68 X1000 (1.2-3.4); MCH 33.1 PG (27-31); MCHC 32.9 g/dL (33-37); MCV 100.6 FL (81-99); MONO# 0.95 X1000 (0.11-0.59); MONO% 22.4 % (1.7-9.3); MPV 9.1 FL (7.4-10.4); NEUT% 54.3 % (42.2-75.2); PLT 249 X1000 (130-400); RBC 3.54 XMIL (4.7-6.1); RDW 15.6 % (11.5-14.5); WBC 4.24 X1000 (4.8-10.8)
[2019-04-13 07:41] LABS: AGAP 10; BUN 6 mg/dL (8-22); CHLORIDE 100 mmol/L (98-107); COSMO 268; CREATININE 0.7 mg/dL (0.7-1.2); ESTIMATED GFR > 60; GLUCOSE 105 mg/dL (70-104); POTASSIUM 3.4 mmol/L (3.5-5.1); SODIUM 135 mmol/L (136-145); TCO2 25 mmol/L (25-35)
[2019-04-13 15:51] LABS: APPEARANCE RED; MONOS 68 %; POLYS 32 %; RBC BF 26000 /cumm; WBC BF 352 /cumm
[2019-04-14 08:38] LABS: BASO# 0.05 X1000 (0.0-0.2); BASO% 0.6 % (0.0-0.8); EOS# 0.14 X1000 (0.0-0.7); EOS% 1.5 % (0.0-10.0); HEMATOCRIT 36.8 % (42.0-52.0); HEMOGLOBIN 12.1 g/dL (14.0-18.0); IMM GRAN# 0.23 X1000 (0.0-0.04); IMM GRAN% 2.5 % (0.0-0.5); LYMPH# 1.14 X1000 (1.2-3.4); LYMPH% 12.6 % (20.5-51.1); MCH 33.4 PG (27-31); MCHC 32.9 g/dL (33-37); MCV 101.7 FL (81-99); MONO# 1.56 X1000 (0.11-0.59); MONO% 17.2 % (1.7-9.3); MPV 9.4 FL (7.4-10.4); NEUT# 5.93 X1000 (1.4-6.5); NEUT% 65.6 % (42.2-75.2); PLT 293 X1000 (130-400); RBC 3.62 XMIL (4.7-6.1); RDW 16.1 % (11.5-14.5); WBC 9.05 X1000 (4.8-10.8)
[2019-04-14 09:12] LABS: AGAP 13; ALB/GLOB RATIO 1.5; ALBUMIN 3.7 g/dL (3.5-5.0); ALKALINE PHOSPHATASE 78 U/L (32-122); BUN 8 mg/dL (8-22); CALCIUM 8.3 mg/dL (8.8-10.2); CHLORIDE 99 mmol/L (98-107); COSMO 272; CREATININE 0.8 mg/dL (0.7-1.2); ESTIMATED GFR > 60; GLUCOSE 98 mg/dL (70-104); GOT 25 U/L (10-34); GPT 22 U/L (10-44); MAGNESIUM 2.2 mg/dL (1.5-2.7); PHOSPHORUS 1.4 mg/dL (2.7-4.5); SODIUM 137 mmol/L (136-145); TCO2 25 mmol/L (25-35); TOTAL PROTEIN 6.2 g/dL (6.3-8.3)
[2019-04-14 09:20] LABS: BANDS 8 % (0-1); LYMPHS 14 % (21-51); MONO 8 % (1-9); NRBC 1 % (0-0); SEGS 62 % (42-75)
[2019-04-15 08:17] LABS: AGAP 10; BUN 10 mg/dL (8-22); CHLORIDE 100 mmol/L (98-107); COSMO 271; CREATININE 0.8 mg/dL (0.7-1.2); ESTIMATED GFR > 60; GLUCOSE 104 mg/dL (70-104); SODIUM 136 mmol/L (136-145); TCO2 26 mmol/L (25-35)
[2019-04-16 07:40] LABS: AGAP 11; BUN 10 mg/dL (8-22); CALCIUM 8.5 mg/dL (8.8-10.2); CHLORIDE 100 mmol/L (98-107); COSMO 271; CREATININE 0.8 mg/dL (0.7-1.2); ESTIMATED GFR > 60; GLUCOSE 102 mg/dL (70-104); POTASSIUM 3.6 mmol/L (3.5-5.1); SODIUM 136 mmol/L (136-145); TCO2 25 mmol/L (25-35)
[2019-04-16 07:49] LABS: BASO# 0.26 X1000 (0.0-0.2); BASO% 2.4 % (0.0-0.8); EOS# 0.06 X1000 (0.0-0.7); EOS% 0.5 % (0.0-10.0); HEMATOCRIT 42.5 % (42.0-52.0); IMM GRAN% 13.7 % (0.0-0.5); LYMPH# 1.52 X1000 (1.2-3.4); LYMPH% 13.9 % (20.5-51.1); MCH 33.6 PG (27-31); MCHC 32.9 g/dL (33-37); MCV 101.9 FL (81-99); MONO# 1.58 X1000 (0.11-0.59); MONO% 14.4 % (1.7-9.3); MPV 9.2 FL (7.4-10.4); NEUT# 6.03 X1000 (1.4-6.5); NEUT% 55.1 % (42.2-75.2); PLT 269 X1000 (130-400); RBC 4.17 XMIL (4.7-6.1); RDW 16.3 % (11.5-14.5); WBC 10.95 X1000 (4.8-10.8)
[2019-04-16 09:17] VITALS: BP 142/88
[2019-04-16 09:49] LABS: EOS 2 % (1-10); LYMPHS 12 % (21-51); MONO 10 % (1-9); NRBC 1 % (0-0)
[2019-04-16 09:50] LABS: BANDS 4 % (0-1); SEGS 64 % (42-75)
== END 2019-04-16 12:37 | disposition home or self-care (01) | DRG 552 ==
LOC: ED 16:46 → 3N 23:24 → SUATTDRO 23:24
PROVIDERS: ATTEND Internal Medicine